=== PATIENT | female | born 1980 | race African-American/Black ===

== ENCOUNTER 2019-06-24 10:38 | Observation (INO) | payer BC, SELFPAY ==
[2019-06-24 10:55] VITALS: BP 141/81; PULSE 108
[2019-06-24 11:28] VITALS: BMI 34.7
--- NOTE | 2019-06-24 11:28 | OBADM ---
This patient, Shonda Rico, admitted to the OB room Labor/Delivery/Recovery 118 for observation. Patient/family oriented to hospital policies and general routines including ID bracelet, bed and alarms, visiting hours, pain management, procedures, bathroom and other care routines, personal items, smoking policy, room service/diet, and visiting hours. Patient/Family are encouraged to report perceived risks to care and to ask questions if they do not understand what they are told or what they should do.
[2019-06-24 11:38] LABS: Add Urine Microscopic? YES; Appearance Urine Clear (Clear); Bacteria Urine Trace /hpf; Bilirubin Urine Negative (Negative); Blood Urine 3+ (Negative); Color Urine Red (Yellow); Glucose Urine UA Negative (Negative); Ketones Urine Negative (Negative); Leukocyte Esterase Ur Negative LEU/UL (NEGATIVE); Mucus Urine Rare /lpf; Nitrate Urine Negative (Negative); Protein Urine 2+ mg/dL (Negative); RBC Urine >75 /hpf (0-2); Specific Grav Ur 1.013 (1.001-1.035); Squamous Epithelial Cell Urine Many /hpf (Few); WBC Urine 51-75 /hpf (0-3)
--- NOTE | 2019-06-24 12:17 | PC.NURSE ---
Computer not printing the proper discharge instruction...with help. Verbal discussion of Macrobid and labor b/c only 29.5 weeks and explained huyen mckeon ctxs compared to questionable ctxs.
--- NOTE | 2019-06-27 08:20 | PM.OBTRLD ---
OB - Triage/Final Diagnosis Evaluation Laboratory results: Laboratory Tests 06/24/19 11:23 Urine Color Red H Urine Appearance Clear Urine pH 6.0 Ur Specific [place] 1.013 Urine Protein 2+ H Urine Glucose (UA) Negative Urine Ketones Negative Ur Blood (Man) 3+ H Urine Nitrate Negative Urine Bilirubin Negative Urine Urobilinogen 4.0 H Ur Leukocyte Esterase Negative Urine RBC >75 H Urine WBC 51-75 H Ur Squamous Epith Cells Many H Urine Bacteria Trace Urine Mucus Rare Final Diagnosis (1) Hematuria: Code(s): R31.9 - Hematuria, unspecified Status: Acute
== END 2019-06-24 12:10 | disposition home or self-care (01) ==
PROVIDERS: Admitting Provider Obstetrics & Gynecology Gynecology; Visit Provider Obstetrics & Gynecology Gynecology
DX: O26.893 Other specified pregnancy related conditions, third trimester (principal); R31.9 Hematuria, unspecified; Z3A.29 29 weeks gestation of pregnancy
CPT/HCPCS: 81001; 87086; 87088; G0378; G0379

== ENCOUNTER 2019-08-26 13:37 | Outpatient (CLI) | payer BC, SELFPAY ==
[2019-08-26 13:52] LABS: Hematocrit 31.9 % (37.0-47.0); Hemoglobin 10.1 g/dL (12.0-15.0); Mean Corpuscular HGB Conc 31.7 g/dl (32-36); Mean Corpuscular Hemoglobin 24.2 pg (26-34); Mean Corpuscular Volume 76.5 fl (80-100); Mean Platelet Volume 11.2 fl (7.4-10.4); Platelet Count Result 237 k/mm3 (150-375); Red Blood Count 4.17 M/mm3 (4.2-5.4); Red Cell Distribution Width 18.8 % (11.5-14.5); White Blood Count 9.4 K/mm3 (4.5-10.0)
[2019-08-28 09:15] LABS: Rapid Plasma Reagin Non-Reactive (NonReactive)
== END 2019-08-26 13:38 | disposition home or self-care (01) ==
PROVIDERS: Visit Provider Obstetrics & Gynecology Gynecology
DX: Z01.812 Encounter for preprocedural laboratory examination (principal)
CPT/HCPCS: 36415; 85027; 86592; 86850; 86900; 86901

== ENCOUNTER 2019-08-28 05:51 | Inpatient (IN) | payer BC, SELFPAY ==
--- NOTE | 2019-08-04 13:21 | PC.NURSE ---
VERIFIED WITH OR SCHEDULE AND PATIENT --C/S ON 08/28/19 AT 0730 PATIENT GIVEN REQUISITION FOR LAB DRAWN ON 08/26/19
[2019-08-28] VITALS (53 sets, daily range): BP systolic 114–151; BP diastolic 54–99; PULSE 54–101; RESP 16–20; TEMP 36.3–37.3; O2SAT 97–100; BMI 34.4
--- NOTE | ~2019-08-28 | CT_ITS ---
EXAMINATION: CT abdomen pelvis wo/w con EXAM DATE: 08/29/2019 11:14 INDICATION: Gross hematuria. Status post . TECHNIQUE: Spiral CT of the abdomen and pelvis was performed without contrast. The patient was then injected with small bolus intravenous Omnipaque 350, followed by delay of approximately 10 minutes to allow collecting system to opacify. A post contrast scan abdomen and pelvis was performed during inj ection of remaining contrast. A total of 130 cc intravenous contrast was administered. The dose-fidelia th product (DLP) for this examination was 2639.65 mGy-cm. The exposure was tailored according to pat ient size (auto mA exposure control), and iterative reconstruction (ASIR) was used as additional dose reduction technique. There is no prior study for comparison. FINDINGS: There is massive fibroid uterus. Small amount of free intraperitoneal gas and fluid, postop erative finding. There is some fluid in tiny foci of gas within the endometrial cavity, along haylie an section site, all likely postoperative. There is no hydronephrosis or nephrolithiasis. The kidne ys enhance symmetrically. Small scattered renal cysts. There are no suspicious renal lesions. The ca lyces and opacified portions of ureters are unremarkable, without filling defects or focal suspicious strictures. There is no contrast extravasation to suggest ureteral or bladder injury. The bladder is unremarkable, no filling defects/sizable blood clot identified. The liver, spleen, adrenal glands and pancreas are unremarkable. Gallbladder is unremarkable. No bi liary obstruction. There is no retroperitoneal or pelvic lymphadenopathy. The appendix is not positively visualized. There is no pericecal inflammatory change to suggest appe ndicitis. The stomach and small bowel are unremarkable. There is expected amount of colonic stool. The heart is normal in size. There are no pericardial or pleural effusions. The lung bases are un remarkable. The bones are unremarkable. IMPRESSION: 1. Unremarkable ureters, bladder, kidneys. 2. Massive fibroid uterus. 3. Postoperative changes. Reviewed, dictated and finalized at location B.
[2019-08-28] MEDS: LACTATED RINGERS 1,000 ML 125 ML IV CONT (06:40)
--- NOTE | 2019-08-28 07:02 | WPDANESEPPF ---
Anes - Initial Pre Proc Eval Procedure: Operation Date: 08/28/19 07:30 Proposed Procedures p Primary Section - Pat Gutierrez MD Date/Time: 08/28/19 07:02 Surgeon: Pat Gutierrez MD Pre Op Diagnosis: C/S Patient Data Age: 39 Gender: F Height: 1.78 m Weight: 109 kg Last Vital Signs Pulse 101 H 08/28/19 06:31 BP 132/90 08/28/19 06:31 Allergies Allergy/AdvReac Type Severity Reaction Status Date / Time benzoyl peroxide Allergy Mild Rash Verified 08/04/19 12:53 Home Medications Medication Instructions Recorded Confirmed Type PNV cmb#95-ferrous fumarate-FA 1 tablet PO DAILY 08/04/19 08/22/19 History [] ergocalciferol (vitamin D2) 1,250 mcg PO 2XW 08/04/19 08/22/19 History [Vitamin D2] calcium carbonate [Calcium 600] 600 mg PO DAILY 08/22/19 08/22/19 History Patient hx anesthesia problems: none Family hx anesthesia problems: none PMFSH Family History Family History (Updated 08/04/19 @ 13:00 by Lindsey Archibald RN) Father Prostate carcinoma Sibling Fibroids Mother Fibromyalgia High cholesterol Diabetes mellitus Hypertension Social History Social History Smoking status: Never smoker Substance use: never Gender identity (if verbalized by the patient): Female Spiritual care concerns: No Anes - Eval Final PreProcedure Day of Procedure 08/28/19 07:02 Patient weight: obese Heart: regular rate and rhythm Lungs: clear to auscultation and normal air movement Airway: Mallampati scale class II Neurological: alert and oriented Last oral intake: >/= 8 hours ASA classification: II Emergent: no Anesthetic plan: proceed Anesthesia type and monitoring: regional spinal Informed Consent: The patient's anesthetic plan and its attendant risks and benefits were discussed with the patient/family/POA. Questions were solicited and answers provided to the satisfaction of the patient/family/POA.
--- NOTE | 2019-08-28 07:04 | LDADM ---
This patient, Shonda Rico, was admitted to Labor/Delivery/Recovery 120 on 08/28/19 at 05:51. Plans for labor, pain management and were discussed with patient. Patient/family oriented to hospital policies and general routines including ID bracelet, bed and alarms, visiting hours, pain management, procedures, bathroom and other care routines, personal items, smoking policy, room service/diet and guest tray routines, infant security routines, call light, and visiting hours. Patient/Family are encouraged to report perceived risks to care and to ask questions if they do not understand what they are told or what they should do. See OBIX for further documentation.
--- NOTE | 2019-08-28 07:36 | P.HP_ITS ---
H&P: HPI History of Present Illness Chief complaint: C/S Narrative: Shonda Rico is a 39 year old female G1 at 39 wks here for csection. uncomplicated. Patient followed by MFM by u/s due to large fibroids. growth has been good. Due to past history of large myomectomies, plan primary csection. labs: B+, Rubella immune, RPR -, HBSAg -, HIV -. GBS -. Patient with anemia and has received 2 iron transfusions and has new onset hematuria without infection. [facility] [place] Surgical History Surgical History (Updated 08/28/19 @ 07:41 by Pat Gutierrez MD) H/O myomectomy Family History Family History (Updated 08/04/19 @ 13:00 by Lindsey Archibald RN) Father Prostate carcinoma Sibling Fibroids Mother Fibromyalgia High cholesterol Diabetes mellitus Hypertension Social History Social History Smoking status: Never smoker Substance use: never Gender identity (if verbalized by the patient): Female Spiritual care concerns: No Meds Home Medications and Allergies Home Medications Medication Instructions Recorded Confirmed Type PNV cmb#95-ferrous fumarate-FA 1 tablet PO DAILY 08/04/19 08/22/19 History [] ergocalciferol (vitamin D2) 1,250 mcg PO 2XW 08/04/19 08/22/19 History [Vitamin D2] calcium carbonate [Calcium 600] 600 mg PO DAILY 08/22/19 08/22/19 History Allergies Allergy/AdvReac Type Severity Reaction Status Date / Time benzoyl peroxide Allergy Mild Rash Verified 08/04/19 12:53 Vital Signs Vital Signs - 24 hr 08/28/19 06:18 08/28/19 06:24 08/28/19 06:31 Temperature 97.4 F L Pulse Rate 95 101 H Respiratory Rate 20 Blood Pressure 146/99 H 132/90 Exam Const: General: healthy appearing and alert Orientation/consciousness: patient oriented x3 Resp: Effort & Inspection: normal respiratory effort Auscultation: clear to auscultation bilaterally Cardio: Rate: regular rate Rhythm: regular rhythm GI: GI Palp: Yes Soft to palpation, No Tenderness to palpation present (GI) and Yes Palpable mass present (gravid with fundal height of 51) : External Female Exam: normal external appearance Speculum Exam - Vagina: normal appearance of the vagina and normal vaginal discharge Speculum Exam - Cervix: normal appearance of the cervix Bimanual exam- vagina & uterus: uterine size normal and consistency normal Bimanual Exam- Adnexa, other: normal adnexae and No adnexal tenderness Neuro: General: patient oriented x3 Assessment and Plan Assessment and plan (1) 39 weeks gestation of : Code(s): Z3A.39 - 39 weeks gestation of Status: Acute Assessment and Plan: Plan to proceed with primary csection (2) H/O myomectomy: Code(s): Z98.890 - Other specified postprocedural states Status: Acute
--- NOTE | 2019-08-28 08:27 | PM.OP ---
Procedure Note - Brief Procedure Note - Brief Date of procedure: 08/28/19 Pre-op diagnosis: C/S IUP 39 wks Prior myomectomy breech Post-op diagnosis: same Procedure performed: primary LTCS Anesthesia: spinal Surgeon: Pat Gutierrez MD Estimated blood loss (mL): 815 Drains: Yes (chaparro) Packing: Yes Pathology: none sent Complications: No immediate complications Condition: stable Disposition: PACU Findings: double footling breech female infant; nuchal cord x 5 tight; 8/9 's; weight 7#4oz; enlarged fibroid uterus (lani R fundal); multiple fibriods
--- NOTE | 2019-08-28 08:30 | PM.OBDSVD ---
DS: Admitting Diagnosis Admitting Diagnosis Admitting Diagnosis: 39 weeks gestation of Myomectomy breech OB - DS: Summary OB Procedures : Ultrasound OB Procedures Intrapartum: OB Procedures: : None Peripartum Data Infant Delivery Method: Section Procedures: Procedures Operation Date: 08/28/19 07:30 <No data on this case meets the specified criteria> complications: none Status at Discharge Functional status at discharge: independent ambulation Overall status at discharge: patient is progressing back to baseline Time Spent with Patient Time attestation: Total time spent providing and/or coordinating discharge services: Discharge Plan Discharge Attending physician on discharge: Pat Gutierrez Discharging Clinician: Pat Gutierrez Anticipated Discharge Date/Time: 08/31/19 07:44 Patient Disposition: Home, Self-Care Activity: may shower, no driving, may drive after 2 weeks and pelvic rest Diet: regular Wound Care Instructions: incision open to air Discharge Instructions: Urology Instructions: Please call the office to schedule an outpatient cystoscopy in the office with Dr. Sheppard in 2-3 weeks. [phone] Patient Instructions: Antibiotic Form Stand Alone Forms: General Discharge Information Follow-up/Referrals: Pat Gutierrez MD [Physician] - 1 Week Kuanl Sheppard MD [Physician] - Discharge Medications: New hydrocodone-acetaminophen 5-325 mg Tablet 1 tab PO Q3H PRN (Reason: Moderate Pain (4-6)) Qty: 20 RF: 0 norethindrone (contraceptive) 0.35 mg tablet 0.35 mg PO DAILY Qty: 84 RF: 3 Continued calcium carbonate [Calcium 600] 600 mg calcium (1,500 mg) Tablet 600 mg PO DAILY RF: 0 ergocalciferol (vitamin D2) [Vitamin D2] 1,250 mcg (50,000 unit) Capsule 1,250 mcg PO 2XW RF: 0 PNV cmb#95-ferrous fumarate-FA [] 28 mg iron- 800 mcg Tablet 1 tablet PO DAILY RF: 0 Date of admission: 08/28/19 05:51 Primary Care Provider: PHYSICIAN,APARTMENT COMMUNITY ASSISTANT MANAGER Admitting Provider: Pat Gutierrez Attending physician on admission: Pat Gutierrez Condition: Stable
[2019-08-28] MEDS: OXYTOCIN 30 UNITS/NS 500 ML 30 UNITS/500 ML BAG 125 UNITS IV CONT (10:45)
--- NOTE | 2019-08-28 11:00 | OBPPTRN ---
Patient transferred to post room # 284 via stretcher. Support person present. Oriented to unit, room, information board, rooming in, admission packet and security measures. Patient verbalizes understanding.
--- NOTE | 2019-08-28 12:05 | PC.NURSE ---
Mother called out for assist. Consulted with patient, mother reports eagerly fed at first feeding. This is mother's first child and she states she was unable to attend a class, assured mother she will receive assist each feeding as she requests and all information will be reviewed before discharge. . Reviewed feeding cues, frequencies, duration of feedings, feeding elimination flow sheet, and signs of adequate intake. Demonstrated stimulation techniques to wake for feeding. Assisted with to breast. Reviewed positioning/alignment in cross cradle, holding breast in U hold and guided asymmetrical latch on. Discussed rational for each. Infant was able to latch correctly with first attempt. nursed eagerly, with steady draws and frequent swallowing noted. Reviewed signs of a correct latch, effective nursing and suck swallow ratio. Infant was able to maintain latch without discomfort to mother. Nipple care reviewed. Suggested to stimulate during feeding to keep infant awake and nursing effectively for increased intake and assist with maintaining deep latch. Demonstrated how to adjust latch more deeply while feeding. Instructed mother to call out for RN assistance if she is unable to latch for feeding or she has discomfort with nursing. Instructed feeding should be initiated three hours from start of last feeding or if feeding cues are noted before. Mother voiced understanding of information shared.
--- NOTE | 2019-08-28 12:44 | OP_ITS ---
DATE OF PROCEDURE: 08/28/2019 PREOPERATIVE DIAGNOSES: 1. Intrauterine at 39 weeks. 2. Previous extensive myomectomies. 3. Breech presentation. POSTOPERATIVE DIAGNOSES: 1. Intrauterine at 39 weeks. 2. Previous extensive myomectomies. 3. Breech presentation. PROCEDURE: Primary low-transverse section. ANESTHESIA: Spinal. FINDINGS: The is in double footling breech presentation. There is a nuchal cord x5 tightly wrapped. The has Apgars of 8 and 9, weighing 7 pounds 4 ounces, is female. The tubes and ovaries are not visualized. The uterus was left in situ. Palpation of the external surface of the uterus reveals large fibroids in multiple locations with the largest being at the right fundus. There are no intracavitary fibroids noted. ESTIMATED BLOOD LOSS: 815 cc. PATHOLOGY: None. DESCRIPTION OF PROCEDURE: The patient was taken to the operating room, placed under spinal anesthesia in the dorsal supine position with a leftward tilt. Once anesthesia was deemed adequate, a Pfannenstiel skin incision was made with a scalpel, carried down to the underlying layer of fascia. The fascia was nicked in the midline and extended laterally using Champion scissors. Bleeding vessels in the subcutaneous tissue were cauterized with Bovie cautery. The peritoneum was tented and entered with Metzenbaums. The incision was extended with blunt traction. Palpation reveals no adhesions over the fundus. The Brent O retractor was placed. The bladder flap was grasped with a Pean and entered with Metzenbaums, and extended laterally using Metzenbaum scissors. Bladder flap was created digitally. The lower uterine segment was incised in a transverse fashion with a scalpel and extended laterally using bandage scissors due to the thick tissue. It would not extend with blunt traction. Membranes were ruptured. Clear fluid was noted. Both feet were grasped. The was delivered to the scapula. The would not rotate. Therefore, both arms were delivered with the 's facing up. The infant's arms were delivered. The wet process assistant head miller was holding the hips with dry towel and the 's head delivered spontaneously when flexing the baby on the abdomen. The nuchal cord x5 was noted and reduced. The cord was clamped and cut and the infant handed to the awaiting nursery nurse. The placenta was removed using manual traction. The uterus was cleared of all clots and debris. The uterine incision was closed using 0 Monocryl in a running locked fashion. Same suture was used to imbricate. Additional [id number] sutures x1 was required in the midline for hemostasis. Bovie cautery of superficial vessels on the under surface of the bladder flap were required for hemostasis. The incision was again inspected and noted to be hemostatic. The Brent O retractor was removed. The fascia was closed using 0 Vicryl in a running fashion. Subcutaneous tissues were irrigated and made hemostatic using Bovie cautery. Skin was closed using 4-0 Vicryl in a subcuticular fashion. DermaFlex was placed over the incision. The patient was taken to recovery room in stable condition. Francia Primitivo MT: Mike
[2019-08-28] MEDS: DEXTROSE 5%/0.45% SOD CHL 1,000 ML 125 ML IV CONT (15:31)
[2019-08-28] MEDS: DOCUSATE SODIUM 100 MG CAPSULE PO (15:47)
[2019-08-28] MEDS: KETOROLAC 30 MG/ML VIAL (*BKC) IV PUSH (15:48)
[2019-08-28] MEDS: KCL 20 MEQ/D5/0.45% SOD CHL 1,000 ML 125 ML IV CONT (22:02)
[2019-08-29 05:30] VITALS: BP 119/71; PULSE 95; RESP 16; TEMP 36.7; O2SAT 99
[2019-08-29 05:43] LABS: Basophils Percent Auto 0.3 % (0.2-1.2); Eosinophils Percent Auto 0.4 % (0-4.4); Hematocrit 22.6 % (37.0-47.0); Hemoglobin 7.3 g/dL (12.0-15.0); Immature Granulocyte Absolute 0.07 K/mm3 (0.00-0.031); Immature Granulocyte Percent A 0.7 % (0-0.5); Lymphocytes Absolute Auto 0.99 K/mm3 (0.9-3.2); Lymphocytes Percent Auto 9.5 % (18.3-44.2); Mean Corpuscular HGB Conc 32.3 g/dl (32-36); Mean Corpuscular Hemoglobin 24.6 pg (26-34); Mean Corpuscular Volume 76.1 fl (80-100); Mean Platelet Volume 11.6 fl (7.4-10.4); Monocytes Absolute Auto 0.4 K/mm3 (0.1-0.6); Monocytes Percent Auto 4.2 % (2.6-8.5); Neutrophils Absolute Auto 8.8 K/mm3 (1.3-6.7); Neutrophils Percent Auto 84.9 % (45.5-73.1); Platelet Count Result 167 k/mm3 (150-375); Red Blood Count 2.97 M/mm3 (4.2-5.4); Red Cell Distribution Width 18.6 % (11.5-14.5); White Blood Count 10.4 K/mm3 (4.5-10.0)
--- NOTE | 2019-08-29 07:39 | PM.OBPNVD ---
OB - PN: Subj Subjective Date/time seen: 08/29/19 07:39 Interval history: still rust colored urine Patient comments: no complaints and pain well controlled [place] baby status: doing well OB - PN: Obj Data Labs CBC & Chem 7: 08/29/19 05:25 Labs: Laboratory Results - last 24 hr 08/29/19 05:25 WBC 10.4 H RBC 2.97 L Hgb 7.3 L Hct 22.6 L MCV 76.1 L MCH 24.6 L MCHC 32.3 RDW 18.6 H Plt Count 167 MPV 11.6 H Immature Gran % (Auto) 0.7 H Neut % (Auto) 84.9 H Lymph % (Auto) 9.5 L [place] % (Auto) 4.2 Eos % (Auto) 0.4 Baso % (Auto) 0.3 Lymph # (Auto) 0.99 [place] # (Auto) 0.4 Eos # (Auto) 0.0 Baso # (Auto) 0.0 Abs Immat Gran (auto) 0.07 H Absolute Neuts (auto) 8.8 H Absolute Nucleated RBC 0.0 Nucleated RBC % 0.0 OB - PN A/P Assessment and Plan (1) delivery delivered: Code(s): O82 - Encounter for delivery without indication Status: Acute Assessment and Plan: POD 1 Doing well. Continue care. Tolerating low Hb (2) Hematuria: Code(s): R31.9 - Hematuria, unspecified Status: Acute Assessment and Plan: Onset with first iron infusion, negative urine culture and no symptoms. Patient did receive 2 iron infusions (last about 1 week ago) Will consult urology to verify no treatment or workup needed. Time Spent With Patient Time: Total time spent is greater than 50% in coordination of care (as documented) at patient's floor/unit and/or counseling patient: Exam : Bimanual exam- vagina & uterus: other (Uterus firm, nt with fibroid at RUQ and uterus at U+3 on L; incision c/d/i)
--- NOTE | 2019-08-29 07:53 | WPDANLDNPN2 ---
Anes-Prog Note L&D-Neuraxial Date/Time: 08/29/19 07:53 Neuraxial medications: intrathecal PF morphine Opiod-related complaints: none Patient feedback: Patient satisfied with post-operative pain management.
--- NOTE | 2019-08-29 07:53 | WPDANLDPN2 ---
Anes-Prog Note L&D Date/Time: 08/29/19 07:53 Comfortable throughout: section Neuraxial method: spinal Epidural/Spinal procedure site: clean & non-tender Neuro status: Neuro function grossly intact. Cardiovascular status: normal Respiratory status: normal Airway patency: baseline Mental status: baseline Post-Op hydration status: normal Vital Signs: Last Vital Signs Temp 36.7 C 08/29/19 05:30 Pulse 95 08/29/19 05:30 Resp 16 08/29/19 05:30 BP 119/71 08/29/19 05:30 Pulse Ox 99 08/29/19 05:30 I/O: Intake & Output 08/28/19 08/28/19 08/29/19 15:59 23:59 07:59 Intake Total 1000 Output Total 693 919 6746 Balance -148 675 -1000 Post-procedural complaints: none Patient feedback: Patient satisfied with anesthetic care.
[2019-08-29 08:10] VITALS: BP 140/90; PULSE 91; RESP 16; TEMP 37.1; O2SAT 99
[2019-08-29 09:52] LABS: Blood Urea Nitrogen 4 mg/dL (7-17); Calcium 8.8 mg/dL (8.4-10.2); Carbon Dioxide 27 mmol/L (22-30); Chloride 101 mmol/L (98-107); Estimated CRCL calculation 203 ml/min; Estimated Glomerular Filt Rate > 60; Glucose 94 mg/dL (65-105); Potassium 2.7 mmol/L (3.4-5.0); Sodium 134 mmol/L (137-145)
[2019-08-29] MEDS: POLYSACCHARIDE IRON COMPLEX 150 MG CAPSULE PO ×2 (11:31→16:25)
[2019-08-29] MEDS: MULTIVIT/MIN/PREN/FOL AC/IRON TABLET 1 TAB PO (11:31)
[2019-08-29] MEDS: DOCUSATE SODIUM 100 MG CAPSULE PO ×2 (11:31→16:24)
[2019-08-29] MEDS: POTASSIUM CHLORIDE 20 MEQ TABLET.ER 40 MEQ PO ×2 (12:08→20:53)
--- NOTE | 2019-08-29 13:22 | WPDURCON ---
Assessment and Plan Assessment and plan (1) Hematuria: Code(s): R31.9 - Hematuria, unspecified Status: Acute Assessment and Plan: CT is negative for urologic findings. Urine culture negative from PAIN MANAGEMENT PHYSICIAN last week. Unknown source for hematuria. No further evaluation at this time. Plan to follow up in the office as outpatinet in a few weeks for cystoscopy. Urology Consult Note HPI Date Seen: 08/29/19 Requesting Physician: Pat Gutierrez MD Primary Care Provider: OCCUPATIONAL THERAPY SUPERVISOR PHYSICIAN Consult Narrative Narrative: Shonda Rico is a 39 year old female who underwent a yesterday is being evaluated d/t ongoing gross hematuria that developed two weeks ago and has been consistent. She started Iron infusions prior to the bleeding as well. She denies dysuria, flank pain, abdominal pain prior to her , fever, chills, nausea, vomiting. She has never had any kidney stones or gross hematuria in the past. This is a new problem for her. She did have CT scan today showing a large uterine fibroid but otherwise negative for urologic findings. Urine culture last week in the PAIN MANAGEMENT PHYSICIAN's office was negative. She denies chronic UTI's, but does have a slightly elevated WBC at 10.4 from 9.4, creatinine is low at 0.40. Review of Systems Cardiovascular: Cardiovascular: Denies chest pain Respiratory: Respiratory: Reports no additional respiratory complaints Gastrointestinal: Gastrointestinal: Reports abdominal pain (at incision only), Denies nausea and Denies vomiting Genitourinary: Genitourinary: Reports hematuria, Denies dysuria, Denies pelvic pain, Denies flank pain, Denies urinary hesitancy and Denies urinary urgency [facility] Surgical History Surgical History (Updated 08/28/19 @ 07:41 by Pat Gutierrez MD) H/O myomectomy Family History Family History (Updated 08/04/19 @ 13:00 by Lindsey Archibald RN) Father Prostate carcinoma Sibling Fibroids Mother Fibromyalgia High cholesterol Diabetes mellitus Hypertension Social History Social History Smoking status: Never smoker Substance use: never Gender identity (if verbalized by the patient): Female Spiritual care concerns: No Meds Home Medications and Allergies Home Medications Medication Instructions Recorded Confirmed Type PNV cmb#95-ferrous fumarate-FA 1 tablet PO DAILY 08/04/19 08/22/19 History [] ergocalciferol (vitamin D2) 1,250 mcg PO 2XW 08/04/19 08/22/19 History [Vitamin D2] calcium carbonate [Calcium 600] 600 mg PO DAILY 08/22/19 08/22/19 History Allergies Allergy/AdvReac Type Severity Reaction Status Date / Time benzoyl peroxide Allergy Mild Rash Verified 08/04/19 12:53 Vital Signs Vital Signs - 24 hr 08/28/19 14:00 08/28/19 15:00 08/28/19 20:20 Temperature 99.1 F 98.2 F Pulse Rate 93 94 94 Respiratory Rate 18 18 16 Blood Pressure 132/73 138/79 122/75 Pulse Oximetry 99 100 99 08/28/19 22:20 08/29/19 05:30 08/29/19 08:10 Temperature 98.4 F 98.1 F 98.8 F Pulse Rate 88 95 91 Respiratory Rate 16 16 16 Blood Pressure 114/67 119/71 140/90 Pulse Oximetry 98 99 99 Exam Resp: Effort & Inspection: normal respiratory effort Cardio: Rate: regular rate GI: Inspection: incision (well approximated, tender upon palpation) GI Palp: Yes Soft to palpation and Yes Other GI palpation findings present (uterine fibroid palpable) : Other: urine in hat bloody Extrem: General: edema Results Labs CBC & Chem 7: 08/29/19 05:25 08/29/19 09:16 Labs: Short CBC 08/29/19 Range/Units 05:25 WBC 10.4 H (4.5-10.0) K/mm3 Hgb 7.3 L (12.0-15.0) g/dL Hct 22.6 L (37.0-47.0) % Plt Count 167 (150-375) k/mm3 [facility] 08/29/19 09:16 Sodium 134 L Potassium 2.7 L* Chloride 101 Carbon Dioxide 27 BUN 4 L Creatinine 0.40 L Glucose 94 Calcium 8.8
--- NOTE | 2019-08-29 14:00 | PC.NURSE ---
Mother is able to independently latch infant with appropriate positioning/alignment. She denies any nipple discomfort, is feeding as required and waking to feed if needed. is currently meeting outcomes for weight, output, jaundice and feeding frequencies.
[2019-08-29] MEDS: IBUPROFEN 600 MG TABLET PO (16:24)
[2019-08-29 20:50] VITALS: BP 134/88; PULSE 98; RESP 16; TEMP 36.9; O2SAT 99
[2019-08-29] MEDS: ACETAMINOPHEN 325 MG TABLET 650 MG PO (20:56)
[2019-08-30 08:15] VITALS: BP 138/83; PULSE 55; RESP 18; TEMP 37.1; O2SAT 98
[2019-08-30] MEDS: IBUPROFEN 600 MG TABLET PO ×3 (08:22→23:57)
[2019-08-30] MEDS: POLYSACCHARIDE IRON COMPLEX 150 MG CAPSULE PO ×2 (08:23→16:39)
[2019-08-30] MEDS: DOCUSATE SODIUM 100 MG CAPSULE PO ×2 (08:24→16:39)
[2019-08-30] MEDS: MULTIVIT/MIN/PREN/FOL AC/IRON TABLET 1 TAB PO (08:24)
--- NOTE | 2019-08-30 17:15 | PM.OBPNVD ---
OB - PN: Subj Subjective Date/time seen: 08/30/19 17:15 patient seen at this am no complaints Interval history: still rust colored urine OB - PN: Obj Data Labs CBC & Chem 7: 08/29/19 05:25 08/30/19 05:27 Labs: Laboratory Results - last 24 hr 08/30/19 05:27 Potassium 3.0 L OB - PN A/P Assessment and Plan (1) delivery delivered: Code(s): O82 - Encounter for delivery without indication Status: Acute Assessment and Plan: continue with pp care pain controlled. Time Spent With Patient Time: Total time spent is greater than 50% in coordination of care (as documented) at patient's floor/unit and/or counseling patient: Exam GI: Other: incision c/d/i fundus above umbilicus firm.
[2019-08-30 18:52] VITALS: BP 135/83; PULSE 83; RESP 16; TEMP 37.1; O2SAT 100
--- NOTE | 2019-08-31 07:42 | PM.OBPNVD ---
OB - PN: Subj Subjective Date/time seen: 08/31/19 07:42 Interval history: still rust colored urine Patient comments: no complaints and pain well controlled [place] baby status: doing well OB - PN: Obj Data Labs CBC & Chem 7: 08/29/19 05:25 08/30/19 05:27 OB - PN A/P Plan day: 3 Plan: routine care and discharge home Comments: Plans POP Time Spent With Patient Time: Total time spent is greater than 50% in coordination of care (as documented) at patient's floor/unit and/or counseling patient: Exam : Bimanual exam- vagina & uterus: other (Uterus firm, nt, fibroid RUQ: inc c/d/i)
[2019-08-31 09:42] VITALS: BP 133/84; PULSE 83; RESP 16; TEMP 36.8; O2SAT 100
--- NOTE | 2019-08-31 10:30 | PC.NURSE ---
Observed mother is able to independently latch with appropriate positioning/alignment. She denies any nipple discomfort, is feeding as required and waking infant to feed if needed. has had at least 8 effective feedings in the past 24 hours, and is currently meeting outcomes for weight, output, jaundice and feeding frequencies. Mother states she feels confident to continue effective at home. Reviewed transition to breast milk, signs of adequate intake, and engorgement/relief. Instructed to call ICP if intake/output less than required. Reviewed regular medications mother is taking. Information provided per Ruthie. Reviewed community resources on the [facility] website and in the Mom/Baby guide. Information on outpatient services provided. Mother has no further questions at this time.
[2019-08-31] MEDS: MULTIVIT/MIN/PREN/FOL AC/IRON TABLET 1 TAB PO (11:02)
[2019-08-31] MEDS: IBUPROFEN 600 MG TABLET PO (11:02)
[2019-08-31] MEDS: POLYSACCHARIDE IRON COMPLEX 150 MG CAPSULE PO (11:03)
[2019-09-01 14:59] VITALS: BP 151/86; PULSE 82; RESP 20; TEMP 36.9
== END 2019-08-31 12:40 | disposition home or self-care (01) | DRG 788 ==
LOC: ANHLDR 08:31 → ANHOB2 08-31 07:44 → ANHLDR 09-01 11:34 → ANHOB2 09-01 11:34
PROVIDERS: Admitting Provider Obstetrics & Gynecology Gynecology; Visit Provider Obstetrics & Gynecology
PROC: 10D00Z1 Extraction of Products of Conception, Low, Open Approach (ICD-10-PCS; CPT 59514; principal; 2019-08-28 07:30)
DX: O32.8XX0 Maternal care for other malpresentation of fetus, not applicable or unspecified (principal); Z37.0 Single live birth; Z3A.39 39 weeks gestation of pregnancy; O99.214 Obesity complicating childbirth; E66.9 Obesity, unspecified; O69.1XX0 Labor and delivery complicated by cord around neck, with compression, not applicable or unspecified; D25.9 Leiomyoma of uterus, unspecified; O99.02 Anemia complicating childbirth; D64.9 Anemia, unspecified; R31.9 Hematuria, unspecified
CPT/HCPCS: 36415; 74178; 80048; 84132; 85025; A9270; J0131; J1885; J2274; J2590; J3480; J7120; Q9967

== ENCOUNTER 2019-10-19 14:19 | Outpatient (CLI) | payer BC, SELFPAY ==
[2019-10-19 15:39] LABS: Hematocrit 33.2 % (37.0-47.0); Hemoglobin 10.8 g/dL (12.0-15.0); Mean Corpuscular HGB Conc 32.5 g/dl (32-36); Mean Corpuscular Hemoglobin 25.2 pg (26-34); Mean Corpuscular Volume 77.6 fl (80-100); Mean Platelet Volume 11.6 fl (7.4-10.4); Platelet Count Result 304 k/mm3 (150-375); Red Blood Count 4.28 M/mm3 (4.2-5.4); Red Cell Distribution Width 16.5 % (11.5-14.5); White Blood Count 6.5 K/mm3 (4.5-10.0)
[2019-10-19 15:44] LABS: Partial Thromboplastin Time 29.6 SECONDS (22.3-36.8)
[2019-10-19 15:46] LABS: Alanine Aminotransferase 12 U/L (4-35); Albumin Level 4.4 g/dL (3.5-5.1); Alkaline Phosphatase 80 U/L (38-126); Anion Gap 8 mmol/L (8-16); Aspartate Amino Transferase 20 U/L (14-36); Bilirubin,Total 0.7 mg/dL (0.2-1.3); Blood Urea Nitrogen 13 mg/dL (7-17); Calcium 9.3 mg/dL (8.4-10.2); Carbon Dioxide 28 mmol/L (22-30); Chloride 103 mmol/L (98-107); Estimated Glomerular Filt Rate > 60; Glucose 89 mg/dL (65-105); Lactate Dehydrogenase 439 U/L (313-618); Potassium 3.5 mmol/L (3.4-5.0); Sodium 139 mmol/L (137-145); Uric Acid 3.2 mg/dL (2.5-7.5)
== END 2019-10-19 14:20 | disposition home or self-care (01) ==
LOC: ANHLAB 14:23
PROVIDERS: Visit Provider Nurse Practitioner
DX: O13.9 Gestational [pregnancy-induced] hypertension without significant proteinuria, unspecified trimester (principal); M79.89 Other specified soft tissue disorders; Z3A.00 Weeks of gestation of pregnancy not specified
CPT/HCPCS: 36415; 80053; 83615; 84550; 85027; 85730